=== PATIENT | female | born 1995 | race African-American/Black ===

== ENCOUNTER 2021-05-27 17:39 | Emergency (ER) | payer OTHER ==
[~2021-05-27] VITALS: Ht 160 cm; Wt 57.0 kg
[2021-05-27] MEDS ORDERED: IBUP-2028 MT (20:29)
[2021-05-27] MEDS ORDERED: IBUPROFEN 400MG TABLET PO ONE (20:30)
[2021-05-27 21:36] VITALS: BP 119/74
== END 2021-05-27 21:36 | disposition home or self-care (01) ==
LOC: ER 17:39
DX: R51.9 Headache, unspecified (principal); M54.2 Cervicalgia; V43.52XA Car driver injured in collision with other type car in traffic accident, initial encounter; Y93.89 Activity, other specified; Y92.488 Other paved roadways as the place of occurrence of the external cause
CPT/HCPCS: 81025; 99282